=== PATIENT | male | born 1985 | race Caucasian/White ===

== ENCOUNTER 2017-10-05 13:37 | Emergency (ER) | payer OTHER ==
--- NOTE | 2017-10-05 14:42 | ER Document Report ---
ED Extremity Problem, Upper - General Chief Complaint: Arm Pain Stated Complaint: LEFT ARM PAIN Time Seen by Provider: 10/05/17 14:33 Mode of Arrival: Ambulatory Information source: Patient Notes: 32-year-old male patient presenting with chief complaint of left arm pain. Patient reports that he was out fishing and use his arm to stop the boat from hitting a dog. Patient denies any actual crush injury to the arm however patient reports that he heard a pop. Past Medical History - General Information source: Patient - Social History Smoking Status: Never Smoker Frequency of alcohol use: None Drug Abuse: None Family History: Reviewed & Not Pertinent - Medical History Medical History: Negative Surgical Hx: Negative Review of Systems - Review of Systems Constitutional: No symptoms reported EENT: No symptoms reported Cardiovascular: No symptoms reported Respiratory: No symptoms reported Gastrointestinal: No symptoms reported Genitourinary: No symptoms reported Male Genitourinary: No symptoms reported Musculoskeletal: See HPI Skin: No symptoms reported Hematologic/Lymphatic: No symptoms reported Neurological/Psychological: No symptoms reported Physical Exam - Vital signs Vitals: Temp Pulse Resp BP Pulse Ox 98.3 F 83 20 123/71 97 10/05/17 13:52 10/05/17 13:52 10/05/17 13:52 10/05/17 13:52 10/05/17 13:52 - Notes Notes: PHYSICAL EXAMINATION: GENERAL: Well-appearing, well-nourished and in no acute distress. HEAD: Atraumatic, normocephalic. EYES: Pupils equal round and reactive to light, extraocular movements intact, sclera anicteric, conjunctiva are normal. NECK: Normal range of motion, supple without lymphadenopathy LUNGS: Breath sounds clear to auscultation bilaterally and equal. No wheezes rales or rhonchi. HEART: Regular rate and rhythm without murmurs Musculoskeletal: Normal range of motion, no pitting or edema. No cyanosis. Swelling noted around mid left arm near the antecubital space, tenderness to palpation from bicep area all the way down into fingertips. Cap refill is less than 3 seconds, positive motor and sensation distal to injury. NEUROLOGICAL: Cranial nerves grossly intact. Normal speech, normal gait. Normal sensory, motor exams PSYCH: Normal mood, normal affect. SKIN: Warm, Dry, normal turgor, no rashes or lesions noted. Course - Re-evaluation Re-evalutation: All x-ray studies are negative for any acute fracture or dislocation. Will discharge patient with likely left arm strain and instruct him to ice, elevate and take [id number] ibuprofen. - Vital Signs Vital signs: Temp Pulse Resp BP Pulse Ox 98 F 92 22 H 108/52 L 100 10/05/17 15:40 10/05/17 15:40 10/05/17 15:40 10/05/17 15:40 10/05/17 15:40 Discharge - Discharge Clinical Impression: Arm sprain Condition: Stable Disposition: HOME, SELF-CARE Additional Instructions: SPRAIN: Your injury is a sprain. A sprain results from stretching or tearing of the ligaments, usually from a twisting injury. The ligaments will require time and protection in order to heal properly. Many sprains are quite disabling and should be taken seriously. The usual initial treatment of sprains is cold packs, elevation, and rest of the injured area. Your physician has assessed the seriousness of your ligament injury, and has outlined a treatment plan. Understand that this treatment may change, depending on how you progress. If a re-examination was recommended, it is important that you follow up as instructed. Call the doctor any time if there is severe pain, numbness, or loss of function in the injured area. ICE & ELEVATION: Apply ice packs frequently against the painful area. Many different schedules are recommended, such as "20 minutes on, 20 minutes off" or "one hour ice, two hours rest." If you need to work, you may need to go longer between ice treatments. You should plan to have the area ice packed AT LEAST one- fourth of the time. The ice should be applied over the wrap, tape, or splint, or over a layer of cloth -- not directly against the skin. Some ice bags have a built-in cloth and can be put directly on the skin. Your injured part should be elevated as much as possible over the next 48 hours. Try to keep the injury above the level of the heart. Avoid use of the injured area. Elevation and rest will decrease the swelling. FOLLOW-UP CARE: If you have been referred to a physician for follow-up care, call the physician s office for an appointment as you were instructed or within the next two days. If you experience worsening or a significant change in your symptoms, notify the physician immediately or return to the Emergency Department at any time for re-evaluation. Please take ibuprofen 600 mg every 6 hours for pain you can also take Tylenol 975 mg every 4-6 hours. Ice and elevate the affected extremity as outlined above. This may take several weeks to heal. If it does not heal you may want to follow-up with orthopedics or your primary care provider. The x- rays taken today show bones do not show other structures such as muscles or ligaments. Occasionally there is a tear that requires a study called an MRI which is ordered on an outpatient basis for this type of injury. Forms: Return to Work Referrals: FRANSISCO CUBA MD [Primary Care Provider] - Follow up as needed
[2017-10-05] MEDS ORDERED: KETOROLAC TROMETHAMINE INJ/PF 30 MG/1 ML SDV IM ONE (15:22)
--- NOTE | 2017-10-05 15:47 | RADIOLOGY REPORT (SQ) ---
EXAM DESCRIPTION: FOREARM LEFT COMPLETED DATE/TIME: 10/05/2017 3:34 pm REASON FOR STUDY: pain, heard a pop COMPARISON: None. NUMBER OF VIEWS: Two views. TECHNIQUE: Two radiographic images acquired of the left forearm, including elbow and wrist in at [facility] [address] one projection. LIMITATIONS: None. FINDINGS: MINERALIZATION: Normal. BONES: No acute fracture or dislocation. No worrisome bone lesions. SOFT TISSUES: No obvious swelling or radiopaque foreign body. IMPRESSION: No radiographic evidence of acute injury. TECHNICAL DOCUMENTATION: JOB ID: [id number] 2010 [employer]- All Rights Reserved Reading location - IP/workstation name: [email or web address]
--- NOTE | 2017-10-05 15:49 | RADIOLOGY REPORT (SQ) ---
EXAM DESCRIPTION: HUMERUS LEFT COMPLETED DATE/TIME: 10/05/2017 3:34 pm REASON FOR STUDY: pain, heard a pop COMPARISON: Left elbow x-ray 10/05/2017. NUMBER OF VIEWS: Two views. TECHNIQUE: Two radiographic images were acquired of the left humerus to include elbow and shoulder i n at least one projection. LIMITATIONS: None. FINDINGS: MINERALIZATION: Normal. BONES: No acute fracture or dislocation. No worrisome bone lesions. SOFT TISSUES: No obvious swelling or radiopaque foreign body. IMPRESSION: No radiographic evidence of acute injury. TECHNICAL DOCUMENTATION: JOB ID: [id number] 2010 [employer]- All Rights Reserved Reading location - IP/workstation name: [email or web address]
--- NOTE | 2017-10-05 15:51 | RADIOLOGY REPORT (SQ) ---
EXAM DESCRIPTION: ELBOW LEFT OVER 2 VIEWS COMPLETED DATE/TIME: 10/05/2017 3:34 pm REASON FOR STUDY: pain, heard a pop . Push a boat away from the dock. COMPARISON: None. NUMBER OF VIEWS: Four views. TECHNIQUE: AP, lateral, and both oblique radiographic images acquired of the left elbow. LIMITATIONS: None. FINDINGS: MINERALIZATION: Normal. BONES: No acute fracture or dislocation. No worrisome bone lesions. JOINT: No effusion. SOFT TISSUES: No soft tissue swelling. No radiopaque foreign body. IMPRESSION: No radiographic evidence of acute injury. TECHNICAL DOCUMENTATION: JOB ID: [id number] 2010 [employer]- All Rights Reserved Reading location - IP/workstation name: [email or web address]
[2017-10-05] MEDS ORDERED: HYDROCODONE/ACETAMINOPHEN 5-325 MG (6 TAB/ER DISP) PO PRN (16:05)
[2017-10-05 16:14] VITALS: BP 125/69
== END 2017-10-05 16:15 | disposition home or self-care (01) ==
LOC: ER 13:37
DX: T14.8XXA Other injury of unspecified body region, initial encounter (principal); M79.602 Pain in left arm; X58.XXXA Exposure to other specified factors, initial encounter
CPT/HCPCS: 99283; 96372; 73080; 73090; 73060; J1885